=== PATIENT | male | born 1985 | race Caucasian/White ===

== ENCOUNTER 2016-12-18 18:01 | Emergency (ER) | payer OTHER ==
[~2016-12-18] VITALS: Ht 172.7 cm; Wt 94.3 kg
[2016-12-18] MEDS ORDERED: ONDANSETRON 2MG/ML, 2ML ONE (18:23)
[2016-12-18] MEDS ORDERED: KETOROLAC 30 MG/1 ML ONE (18:23)
[2016-12-18] MEDS ORDERED: SODIUM CHLORIDE 0.9% 1,000ML IV ONE (18:30)
[2016-12-18] MEDS ORDERED: ONDANSETRON 2MG/ML, 2ML IVPush ONE (18:30)
[2016-12-18] MEDS ORDERED: SODIUM CHLORIDE FLUSH 10ML SYR IVF ONE (18:30)
[2016-12-18] MEDS ORDERED: KETOROLAC 30 MG/1 ML IVPush ONE (18:30)
[2016-12-18 18:43] LABS: BLOOD UREA NITROGEN 8 mg/dL (7-18)
[2016-12-18 18:46] LABS: HEMATOCRIT 53.8 % (39.2-51.8); HEMOGLOBIN 18.3 g/dL (13.7-18.0); WHITE BLOOD COUNT 9.9 x10^3/uL (3.4-10)
[2016-12-18] MEDS ORDERED: MORPHINE SULFATE 4 MG/ML, 1ML ONE (18:49)
[2016-12-18] MEDS ORDERED: MORPHINE SULFATE 4 MG/ML, 1ML IVPush PRN (19:00)
[2016-12-18 19:01] LABS: PATH.CAST-FLAG NOT PRESENT; SPERM-FLAG NOT PRESENT; SRC-FLAG NOT PRESENT; XTAL-FLAG NOT PRESENT; YLC-FLAG NOT PRESENT
[2016-12-18 19:34] VITALS: BP 114/84
[2016-12-18] MEDS ORDERED: HYDROcodone/APAP 5/325 TABLET ONE (19:36)
[2016-12-18] MEDS ORDERED: HYDROcodone/APAP 5/325 TABLET PO ONE (20:00)
== END 2016-12-18 19:53 | disposition home or self-care (01) ==
LOC: ED 19:47
DX: N20.2 Calculus of kidney with calculus of ureter (principal)
CPT/HCPCS: 36415; 74176; 80048; 81001; 82040; 85025; 96361; 96374; 96375; 99285; J1885; J2405; J7030

== ENCOUNTER 2017-03-03 09:43 | Emergency (ER) | payer OTHER ==
[~2017-03-03] VITALS: Ht 172.7 cm; Wt 97.6 kg
[2017-03-03 10:16] LABS: PATH.CAST-FLAG NOT PRESENT; SPERM-FLAG NOT PRESENT; SRC-FLAG NOT PRESENT; XTAL-FLAG NOT PRESENT; YLC-FLAG NOT PRESENT
[2017-03-03] MEDS ORDERED: DIPHENHYDRAMINE 25 MG CAPSULE ONE (10:21)
[2017-03-03] MEDS ORDERED: KETOROLAC 30 MG/1 ML ONE (10:21)
[2017-03-03] MEDS ORDERED: ONDANSETRON ODT 4 MG ONE (10:21)
[2017-03-03] MEDS ORDERED: KETOROLAC 30 MG/1 ML IM ONE (10:30)
[2017-03-03] MEDS ORDERED: DIPHENHYDRAMINE 25 MG CAPSULE PO ONE (10:30)
[2017-03-03] MEDS ORDERED: ONDANSETRON ODT 4 MG PO ONE (10:30)
[2017-03-03 10:33] LABS: RAPID INFLUENZA A POSITIVE (Negative); RAPID INFLUENZA B Negative (Negative)
[2017-03-03] MEDS ORDERED: ALBUTEROL SULFATE 2.5 MG/3 ML ONE (10:54)
[2017-03-03] MEDS ORDERED: ALBUTEROL SULFATE 2.5 MG/3 ML NPPB ONE (11:00)
[2017-03-03] MEDS ORDERED: SODIUM CHLORIDE FLUSH 10ML SYR IVF ONE (11:00)
[2017-03-03] MEDS ORDERED: SODIUM CHLORIDE 0.9% 1,000ML IVBOLUS ONE (11:00)
[2017-03-03 11:24] VITALS: BP 99/54
== END 2017-03-03 11:54 | disposition home or self-care (01) ==
LOC: ED 11:48
DX: J09.X2 Influenza due to identified novel influenza A virus with other respiratory manifestations (principal); E86.0 Dehydration
CPT/HCPCS: 71020; 81001; 87400; 93005; 94640; 96372; 99285; J1885; J7030; Q0162; Q0163; J7613

== ENCOUNTER 2018-04-27 18:29 | Emergency (ER) | payer OTHER ==
[~2018-04-27] VITALS: Ht 172.7 cm; Wt 102.8 kg
[2018-04-27 18:49] LABS: BASOPHILS # (AUTO) 0.05 x10^3/uL (0-0.1); BASOPHILS % (AUTO) 1 % (0-1); EOSINOPHILS # (AUTO) 0.71 x10^3/uL (0-0.4); EOSINOPHILS % (AUTO) 7 % (1-7); LYMPHOCYTES # (AUTO) 2.77 x10^3/uL (1-3.4); LYMPHOCYTES % (AUTO) 29 % (22-44); MD NO; MEAN CORPUSCULAR HEMOGLOBIN 31.4 pg (27.5-34.5); MEAN CORPUSCULAR HGB CONC 34.3 g/dL (33.2-36.2); MEAN CORPUSCULAR VOLUME 91.8 fL (81-97); MEAN PLATELET VOLUME 7.3 fL (7.4-10.4); MONOCYTES % (AUTO) 6 % (2-9); NEUTROPHILS # (AUTO) 5.56 x10^3/uL (1.8-6.8); NEUTROPHILS % (AUTO) 57 % (42-75); PLATELET COUNT 350 x10^3/uL (130-400); RED CELL DISTRIBUTION WIDTH 13.2 % (9.4-14.8)
[2018-04-27 19:00] LABS: ALBUMIN 4.1 g/dL (3.4-5.0); ANION GAP 4 mmol/L (5-15); CALCIUM 8.6 mg/dL (8.5-10.1); CHLORIDE 108 mmol/L (98-107)
[2018-04-27 19:02] LABS: MICROSCOPIC INDICATED
[2018-04-27 19:21] LABS: CULTURE INDICATED? NO
--- NOTE | 2018-04-27 19:53 | NUR ---
pt to room from lobby
--- NOTE | 2018-04-27 20:06 | NUR ---
PT PRESENTING TO ER FOR RIGHT FLANK PAIN AND N/V THIS AFTER NOON. PMH OF KIDNEY STONES, PT STATES FEELS THE SAME. CONNECTED TO MONITORS, VSS. CALL LIGHT WITHIN REACH. AWAITING MD ASSESSMENT AND FURTHER ORDERS.
[2018-04-27 20:08] VITALS: BP 122/89
--- NOTE | 2018-04-27 20:35 | NUR ---
ADDITIONAL ORDERS RECEIVED AT THIS TIME, AWAITING RESULTS AND MEDS TO BE GIVEN.
[2018-04-27] MEDS ORDERED: HYDROmorphone 2 MG/ML, 1ML ONE (20:37)
[2018-04-27] MEDS ORDERED: KETOROLAC 30 MG/1 ML ONE (20:37)
--- NOTE | 2018-04-27 20:41 | NUR ---
PT MEDICATED FOR PAIN. TAKEN TO RAD
--- NOTE | 2018-04-27 20:57 | NUR ---
ALL RESULTS BACK IN AT THIS TIME, CHART UP FOR RECHECK
[2018-04-27] MEDS ORDERED: HYDROmorphone 1 MG/ML, 1ML IM ONE (21:00)
[2018-04-27] MEDS ORDERED: KETOROLAC 30 MG/1 ML IM ONE (21:00)
== END 2018-04-27 21:41 | disposition home or self-care (01) ==
LOC: ED 20:26
DX: R10.9 Unspecified abdominal pain (principal)
CPT/HCPCS: 36415; 74018; 76770; 80048; 81001; 82040; 85025; 96372; 99284; J1170; J1885

== ENCOUNTER 2019-07-30 04:21 | Emergency (ER) | payer OTHER ==
[~2019-07-30] VITALS: Ht 172.7 cm; Wt 103.0 kg
[2019-07-30] MEDS ORDERED: ONDANSETRON 2MG/ML, 2ML ONE (04:59)
[2019-07-30] MEDS ORDERED: MORPHINE SULFATE 4 MG/ML, 1ML ONE (04:59)
[2019-07-30] MEDS ORDERED: MORPHINE SULFATE 4 MG/ML, 1ML IVPush PRN (05:00)
[2019-07-30] MEDS ORDERED: SODIUM CHLORIDE FLUSH 10ML SYR IVF ONE (05:00)
[2019-07-30] MEDS ORDERED: ONDANSETRON 2MG/ML, 2ML IVPush ONE (05:00)
--- NOTE | 2019-07-30 05:15 | NUR ---
PT STATES RIGHT FLANK AND RIGHT ABD PAIN SINCE 2AM. NAUSEA BUT NO VOMITTING PAIN 09/23. HX KIDNEY STONES. PT AMBULATORY TO THE BATHROOM WITH A STEADY GAIT. PIV PLACED AND PT MEDICATED PER EMAR FOR PAIN. PT NOW STATES PAIN 04/26. PT TO CT SCAN.
[2019-07-30 05:23] LABS: MICROSCOPIC AUTO
[2019-07-30 05:25] LABS: BASOPHILS # (AUTO) 0.05 x10^3/uL (0-0.1); BASOPHILS % (AUTO) 0 % (0-1); EOSINOPHILS # (AUTO) 0.45 x10^3/uL (0-0.4); EOSINOPHILS % (AUTO) 4 % (1-7); LYMPHOCYTES # (AUTO) 2.27 x10^3/uL (1-3.4); LYMPHOCYTES % (AUTO) 19 % (22-44); MD NO; MEAN CORPUSCULAR HGB CONC 33.5 g/dL (33.2-36.2); MEAN CORPUSCULAR VOLUME 92.8 fL (81-97); MEAN PLATELET VOLUME 7.5 fL (7.4-10.4); MONOCYTES # (AUTO) 0.74 x10^3/uL (0.2-0.8); MONOCYTES % (AUTO) 6 % (2-9); NEUTROPHILS # (AUTO) 8.59 x10^3/uL (1.8-6.8); NEUTROPHILS % (AUTO) 71 % (42-75); PLATELET COUNT 352 x10^3/uL (130-400); RED BLOOD COUNT 5.48 x10^6/uL (4.38-5.82); RED CELL DISTRIBUTION WIDTH 12.9 % (9.4-14.8)
[2019-07-30 05:27] LABS: CULTURE INDICATED? NO
[2019-07-30 05:35] VITALS: BP 115/81
[2019-07-30 05:35] LABS: ALBUMIN 3.9 g/dL (3.4-5.0); ANION GAP 2 mmol/L (5-15); CALCIUM 8.6 mg/dL (8.5-10.1); CHLORIDE 109 mmol/L (98-107)
[2019-07-30 05:39] LABS: ALANINE AMINOTRANSFERASE 74 U/L (12-78); ALKALINE PHOSPHATASE 114 U/L (45-117); BILIRUBIN,TOTAL 1.2 mg/dL (0.2-1.0); CREATININE 1.36 mg/dL (0.7-1.3)
== END 2019-07-30 05:59 | disposition home or self-care (01) ==
LOC: ED 05:58
DX: N20.0 Calculus of kidney (principal); Z90.49 Acquired absence of other specified parts of digestive tract; Z88.1 Allergy status to other antibiotic agents; Z91.041 Radiographic dye allergy status
CPT/HCPCS: 36415; 74176; 80053; 81001; 83690; 85025; 96374; 96375; 99284; J2270; J2405